=== PATIENT | female | born 1965 | race Caucasian/White ===

== ENCOUNTER → 2024-06-20 12:06 | Outpatient (REF) | payer BC, SELFPAY | LOC: HWRAD 12:06 | PROVIDERS: ATTENDING PHYSICIAN Student in an Organized Health Care Education/Training Program; FAMILY PHYSICIAN Family Medicine | DX: M25.552 Pain in left hip (principal) | CPT/HCPCS: 73700 ==

== ENCOUNTER 2024-06-22 06:33 | Day surgery (SDC) | payer BC, SELFPAY ==
--- NOTE | 2024-06-20 16:22 | PTCARENOTE ---
Patient took Tabitha 06/19/24 at 1800, Dr. Alva made aware, surgery urgent, no additional requests.
[2024-06-22] VITALS (10 sets, daily range): BP systolic 112–129; BP diastolic 68–103; BMI 22.3
[2024-06-22 09:56] LABS: Glucose - Point of Care 115 mg/dl (70-99)
[2024-06-22] MEDS: TYLENOL 1000 MG PO (10:03)
[2024-06-22 11:58] LABS: Glucose - Point of Care 94 mg/dl (70-99)
--- NOTE | 2024-06-22 14:33 | W.PN.UPDATE ---
Update Note
Progress Note Update
OP report dictation # [id number]
[2024-06-22] MEDS: DILAUDID 0.25 MG IV (14:38)
[2024-06-22 14:51] LABS: Glucose - Point of Care 107 mg/dl (70-99)
== END 2024-06-22 16:06 | disposition home or self-care (01) ==
LOC: SDS 06:33
PROVIDERS: ATTENDING PHYSICIAN Student in an Organized Health Care Education/Training Program
DX: S72.002A Fracture of unspecified part of neck of left femur, initial encounter for closed fracture (principal); X58.XXXA Exposure to other specified factors, initial encounter
CPT/HCPCS: 27235; 73502; 76000; 82962; 93005

== ENCOUNTER → 2024-07-19 10:32 | Outpatient (REF) | payer BC, SELFPAY | LOC: WDC 10:32 | PROVIDERS: ATTENDING PHYSICIAN Nurse Practitioner Family | DX: Z12.31 Encounter for screening mammogram for malignant neoplasm of breast (principal) | CPT/HCPCS: 77063; 77067 ==

== ENCOUNTER → 2024-09-11 08:17 | Outpatient (REF) | payer OTHER, SELFPAY | LOC: RAD 08:17 | PROVIDERS: ATTENDING PHYSICIAN Nurse Practitioner Family | DX: Z13.820 Encounter for screening for osteoporosis (principal) | CPT/HCPCS: 77080 ==

== ENCOUNTER 2025-07-02 13:10 | Emergency (ER) | payer OTHER, SELFPAY ==
[2025-07-02 13:13] VITALS: BP 154/76
[2025-07-02 13:48] VITALS: BP 121/67; BMI 23.6
[2025-07-02 14:00] VITALS: BP 128/68
[2025-07-02 14:14] LABS: Hematocrit 37.5 % (37.0-47.0); Hemoglobin 12.3 g/dL (12.0-16.0); Mean Corp Hgb Conc. 32.8 g/dL (33.0-37.0); Mean Corpuscular Volume 85.6 fL (81.0-99.0); Nucleated Red Blood Cells % 0 %; Platelet Count 311 10^3/uL (130-400); Red Cell Dist. Width 13.1 % (11.5-14.5); Urine Character Clear (Clear)
[2025-07-02 14:36] LABS: ALT (SGPT) 39 U/L (0-35); AST (SGOT) 27 U/L (14-36); Albumin 4.7 g/dl (3.5-5.0); Alkaline Phosphatase 52 U/L (38-126); Blood Urea Nitrogen 10 mg/dl (7-17); Calcium 9.9 mg/dl (8.4-10.2); Carbon Dioxide 27 mmol/L (22-30); Chloride 105 mmol/L (98-107); Estimated Creatinine Clearance 71 ml/min; Glucose 96 mg/dl (70-99); Lipase 263 U/L (23-300); Potassium 4.3 mmol/L (3.5-5.1); Sodium 139 mmol/L (135-145); Total Protein 7.3 g/dl (6.3-8.2); eGFR > 60.00
[2025-07-02 14:47] LABS: Urine Squamous Cell 0-2 /LPF (Few)
--- NOTE | 2025-07-02 14:50 | ED.GENMED ---
History of Present Illness
<Edgar Shane PA-C - Last Filed: 07/02/25 16:49>
General
Chief Complaint: Abdominal Pain
Source: patient
Exam Limitations: none
Time Seen by Provider: 07/02/25 14:13
History of Present Illness
History of Present Illness:
59-year-old female with history of prediabetes on Mounjaro who has been on this for 2 years presents complaining of back pain and right lower abdominal pain intermittent since its onset a couple days ago. She initially thought she strained her back
from being with her grandkids. There is no fever nausea or vomiting. No urinary symptoms. She was seen at the family doctor today had a normal urinalysis but was tender to the right lower quadrant and was sent here for evaluation for right lower
quadrant pain. She does have history of kidney stones. No prior abdominal surgical history. No other complaints at this time
Phy Exam
<Edgar Shane PA-C - Last Filed: 07/02/25 16:49>
Physical Exam
Physical Exam:
General: Well-appearing female no acute respiratory distress
HEENT normal cephalic atraumatic
Heart: Regular rate and rhythm
Lungs: Clear no wheeze
Abdomen is soft nontender no guarding or rebound no significant costovertebral angle tenderness
Extremities: No cyanosis
Course
<Edgar Shane PA-C - Last Filed: 07/02/25 16:49>
Orders/Labs/Results
Orders:
Orders
07/02/25 13:51
IV Insert/Care/Rem.- Treatment PRN
07/02/25 13:59
Complete Blood Count/With Diff Urgent
Comprehensive Metabolic Panel Urgent
Lipase Urgent
Urinalysis Reflex To Culture Urgent
Date Specimen was Collected: 07/02/25
Time Specimen was Collected: 13:51
Urine Microscopic Reflex Cult Urgent
Urine Culture Urgent
WES Source: U
Specimen Description:
Date Specimen was Collected: 07/02/25
Time Specimen was Collected: 13:51
07/02/25 14:21
CT Abd/pelvis W Iv Cont Urgent
Comment:
Reason For Exam: rlq pain
Abnormal Lab Results
07/02/25
13:59
MCHC 32.8 L g/dL
(33.0-37.0)
ALT 39 H U/L
(0-35)
Leukocyte Esterase Rfl 2+ A
(Negative)
Urine RBC 3-6 A /HPF
(0-2)
Urine Bacteria (Reflex) Few A
(Negative)
Urine Albumin (Reflex) 1+ A
(Neg - Trace)
07/02/25 13:59
07/02/25 13:59
Vital Signs
Initial and Last Documented VS:
Initial Vital Signs
Temp Pulse Resp BP Pulse Ox
97.9 F 80 16 154/76 98
07/02/25 13:13 07/02/25 13:13 07/02/25 13:13 07/02/25 13:13 07/02/25 13:13
Last Documented Vital Signs
Temp Pulse Resp BP Pulse Ox
97.9 F 106 18 134/77 98
07/02/25 13:13 07/02/25 16:31 07/02/25 17:22 07/02/25 17:16 07/02/25 17:22
<Phil Castorena PA-C - Last Filed: 07/02/25 21:46>
Orders/Labs/Results
Orders:
Orders
07/02/25 13:51
IV Insert/Care/Rem.- Treatment PRN
07/02/25 13:59
Complete Blood Count/With Diff Urgent
Comprehensive Metabolic Panel Urgent
Lipase Urgent
Urinalysis Reflex To Culture Urgent
Date Specimen was Collected: 07/02/25
Time Specimen was Collected: 13:51
Urine Microscopic Reflex Cult Urgent
Urine Culture Urgent
WES Source: U
Specimen Description:
Date Specimen was Collected: 07/02/25
Time Specimen was Collected: 13:51
07/02/25 14:21
CT Abd/pelvis W Iv Cont Urgent
Comment:
Reason For Exam: rlq pain
Abnormal Lab Results
07/02/25
13:59
MCHC 32.8 L g/dL
(33.0-37.0)
ALT 39 H U/L
(0-35)
Leukocyte Esterase Rfl 2+ A
(Negative)
Urine RBC 3-6 A /HPF
(0-2)
Urine Bacteria (Reflex) Few A
(Negative)
Urine Albumin (Reflex) 1+ A
(Neg - Trace)
07/02/25 13:59
07/02/25 13:59
Vital Signs
Initial and Last Documented VS:
Initial Vital Signs
Temp Pulse Resp BP Pulse Ox
97.9 F 80 16 154/76 98
07/02/25 13:13 07/02/25 13:13 07/02/25 13:13 07/02/25 13:13 07/02/25 13:13
Last Documented Vital Signs
Temp Pulse Resp BP Pulse Ox
97.9 F 106 18 134/77 98
07/02/25 13:13 07/02/25 16:31 07/02/25 17:22 07/02/25 17:16 07/02/25 17:22
Jerilt;Edgar Shane PA-C - Last Filed: 07/02/25 16:49>
MDM/Problems Addressed
Differential Diagnosis Includes:
Intermittent right lower abdominal pain consider renal colic versus constipation versus viral illness versus less likely appendicitis or UTI. Labs pending urinalysis pending will order CT scan
<Edgar Shane PA-C - Last Filed: 07/02/25 16:49>
*Pulse Oximetry
SaO2: 96
Oxygen Mode of Delivery: Room air
<Phil Castorena PA-C - Last Filed: 07/02/25 21:46>
*Pulse Oximetry
Patient hypoxic: no
*Critical Care Note
Total Time (30-74mins, 75-104mins- exclusive of procedures): Not Applicable
<Phil Castorena PA-C - Last Filed: 07/02/25 21:46>
Update Note
Update Note:
1700: Assumed care of pt from Danilo Shane PA-C pending CT to r/o appendicitis
1738: Patient reevaluated. At this time she remains asymptomatic with a benign abdominal exam. She has passed flatus and bowel movements today. No fevers. She has no tenderness to the abdomen. CT scan reports reviewed by myself, at this time
she has no clinical presentation concerning for bowel obstruction or partial bowel obstruction. Educated her on return parameters
ED Attending Note
<Edgar Shane PA-C - Last Filed: 07/02/25 16:49>
-
Portions of this chart may have been created with voice recognition software.� Occasional wrong word or��sound alike� substitutions may have occurred due to the inherent limitations of voice recognition software.
Discharge Plan
Departure
Patient Disposition: Home (Routine Discharge)
Date of Disposition: 07/02/25
Time of Disposition: 17:39
Patient with high blood pressure during this ER visit?: No
Discharge Problem:
Lower abdominal pain
Instructions: Abdominal Pain
Prescriptions:
No Action
ibuprofen 200 MG capsule
200 - 400 mg PO PRN PRN (Reason: pain)
cyclobenzaprine 10 MG tablet
10 mg PO PRN PRN (Reason: spasms)
escitalopram oxalate 5 MG tablet
5 mg PO DAILY
albuterol sulfate 18 GM HFA aerosol inhaler
2 puff IH PRN PRN (Reason: SOB)
Patient Comments:
Last taken more than 6 months ago.
ascorbic acid (vitamin C) [Vitamin C] 500 mg Tablet
500 mg PO DAILY
diphenhydramine HCl [Benadryl] 25 mg Capsule
25 mg PO HS PRN (Reason: sleep/allergies)
rosuvastatin 10 mg Tablet
10 mg PO DAILY
levocetirizine [Xyzal] 5 mg Tablet
5 mg PO DAILY PRN (Reason: allergies)
Mounjaro 10 mg/0.5 mL Pen Injector
10 mg SC QWEEK
Co Q-10
1 cap PO DAILY
cranberry
300 mg PO DAILY
Referrals:
Godfrey Delvalle DO [Family Provider, Family Practice]
Activity Restrictions/Additional Instructions:
Return to the emergency department mediately if you develop worsening pain, inability to pass stool or gas, or vomiting
Interventions
Interventions:
*Risk Screen - Suicide Last Done: 07/02/25 13:13
*General Assessment Last Done: 07/02/25 13:49
*Neglect/Abuse Screening Last Done: 07/02/25 13:13
*ED- Fall Risk Assessment Last Done: 07/02/25 13:49
*ED COVID-19 Vaccine History Last Done: 07/02/25 13:49
*ED Influenza Vaccine History Last Done: 07/02/25 13:49
*Nursing Disposition Last Done: 07/02/25 17:44
HC-Eegxyg-Gvcxjktvzj Assessment Last Done: 07/02/25 14:00
Discharge Date and Time
Discharge Date/Time: 07/02/25 17:47
Print Language: LITHUANIAN
[2025-07-02 15:00] VITALS: BP 117/65
[2025-07-02 16:00] VITALS: BP 131/72
[2025-07-02 17:16] VITALS: BP 134/77
== END 2025-07-02 17:47 | disposition home or self-care (01) ==
LOC: EMR 13:10
PROVIDERS: EMERGENCY PHYSICIAN Emergency Medicine; FAMILY PHYSICIAN Family Medicine
DX: R10.31 Right lower quadrant pain (principal); I25.10 Atherosclerotic heart disease of native coronary artery without angina pectoris; Z87.442 Personal history of urinary calculi; Z90.710 Acquired absence of both cervix and uterus
CPT/HCPCS: 99284; 74177; 80053; 81003; 81015; 83690; 85025; 87086; Q9967

== ENCOUNTER → 2025-07-25 11:24 | Outpatient (REF) | payer OTHER, SELFPAY | LOC: WDC 11:24 | PROVIDERS: ATTENDING PHYSICIAN Nurse Practitioner Family | DX: Z12.31 Encounter for screening mammogram for malignant neoplasm of breast (principal) | CPT/HCPCS: 77063; 77067 ==

== ENCOUNTER → 2025-08-08 12:50 | Outpatient (REF) | payer OTHER, SELFPAY | LOC: RCS 12:50 | PROVIDERS: ATTENDING PHYSICIAN Internal Medicine Cardiovascular Disease; FAMILY PHYSICIAN Family Medicine | DX: R93.1 Abnormal findings on diagnostic imaging of heart and coronary circulation (principal); Z91.89 Other specified personal risk factors, not elsewhere classified | CPT/HCPCS: 93017 ==